=== PATIENT | male | born 1970 ===

== ENCOUNTER 2017-09-15 11:27 | Emergency (ER) | payer OTHER ==
[~2017-09-15] VITALS: Ht 170.2 cm; Wt 61.2 kg
[~2017-09-15 11:27] MED LIST: ALBU90OI INH; AMOCLA875 PO; AMOX500 PO; AZIT250 PO; BENZ100A PO; CHLO500 PO; CODGUAEL PO; CYCL10 PO; DIAZ5 PO; ERGO50000 PO; HYDACE10B PO; HYDACE5 PO; HYDHCL10 PO; IBUP600 PO; LITH300C; METCAR500 PO; METPRE4DP PO; Monodox100 MG PO; NAPR500 PO; OXYACE5T PO; PRAM.125; PROCODE120 PO; PROM25 PO; Prednisone20 MG PO; RXTRAM50 PO; SIMV20 PO; SPACE CHAMBER1 EACH MC; TRAM50 PO
[2017-09-15] MEDS ORDERED: DIVA500EC PO (15:02)
== END 2017-09-15 15:55 | disposition home or self-care (01) ==
LOC: ER 11:27
DX: R51 Headache (principal); Z88.8 Allergy status to other drugs, medicaments and biological substances; F32.9 Major depressive disorder, single episode, unspecified; F31.9 Bipolar disorder, unspecified; F17.200 Nicotine dependence, unspecified, uncomplicated
CPT/HCPCS: 36415; 96361; 96374; 96375; 99284-25; J1170; J1200; J1885; J2765; J3010; J7120; Q3014